=== PATIENT | female | born 1935 | race Caucasian/White ===

== ENCOUNTER → 2018-10-11 | Outpatient (CLI) | payer MEDICARE, OTHER ==
[~2018-10-11] MED LIST: ACET325 PO; ASCO500; ASCO500 PO; ASPI325; ASPI325 PO; ASPI81CH PO; ATOR10 PO; BAYER PLUS 500500 MG PO; CALCAVITD; CALCIUM/VIT D PO; CARV3.125 PO; CHOL10002 PO; CLON.1 PO; CLOP75 PO; CYCL0.05OP; CYCL0.05OP BOTHEYES; Cinnamon500 MG PO; Coq-10100 MG PO; Cosamin Ds Tab1 EACH PO; ESTRADIOL PO; FISH1000 PO; FLAX; FLAX PO; GLUCOSAMINE-CH1 EA10 PO; HYDACE5; HYDCHL25 PO; HYDR1TAB94 PO; ISOMON30 PO; LISI20; Lovastatin20 MG PO; MAGOX 400400 MG PO; METF500; METF500 PO; METO100ER; Multivitamin1 EAC1 PO; ONDA4 PO; OXAP600 PO; PANT40 PO; POTA10T PO; PROBIOTIC1 EAC1 PO; SOLI5 PO; SUMA25; TRAZ50 PO; TRIHYD253B; TROSPIUM CHLORI20 MG PO; TUMERIC CAPSULE PO; UBID100; VITAMIN D PO; XARELTO15 MG PO; ZESTRIL PO
[2018-10-11 12:14] LABS: BASOPHILS ABSOLUTE AUTO 0.06 K/mm3 (0.00-0.23); BASOPHILS PERCENT AUTO 1 % (0-2); EOSINOPHILS PERCENT AUTO 3 % (0-6); Hematocrit 38.3 % (33.0-51.0); Hemoglobin 12.5 g/dL (11.5-16.0); IMMATURE GRAN ABSOLUTE AUTO 0.07 K/mm3 (0.00-0.10); IMMATURE GRAN PERCENT AUTO 1 % (0-1); LYMPHOCYTES ABSOLUTE AUTO 1.16 K/mm3 (0.84-5.20); LYMPHOCYTES PERCENT AUTO 10 % (21-46); MONOCYTES ABSOLUTE AUTO 0.91 K/mm3 (0.16-1.47); MONOCYTES PERCENT AUTO 8 % (4-13); Mean Corpuscular HGB 28.4 pg (26.0-34.0); Mean Corpuscular HGB Conc 32.6 g/dL (31.5-36.5); Mean Corpuscular Volume 87 fL (80-100); Mean Platelet Volume 9.1 fL (9.1-12.4); NEUTROPHILS ABSOLUTE AUTO 9.01 K/mm3 (1.96-9.15); NEUTROPHILS PERCENT AUTO 78 % (41-73); Platelet Count 328 K/mm3 (150-400); RDW Coefficient Variation 14.8 % (11.7-14.2); RDW Standard Deviation 47.3 fL (35.1-46.3); White Blood Cell Count 11.51 K/mm3 (4.00-11.30)
[2018-10-11 12:20] LABS: Bun/Creatinine Ratio 16.4 (12.0-20.0); Creatinine, Blood 1.1 mg/dL (0.40-1.00); Potassium, Blood 3.2 mmol/L (3.5-5.5)
== END | disposition home or self-care (01) ==
LOC: LAB SHORT 12:10 → LAB EV 12:10
PROVIDERS: Physician Assistant Surgical
DX: R41.82 Altered mental status, unspecified (principal)
CPT/HCPCS: 80048; 85025

== ENCOUNTER → 2018-10-16 | Outpatient (CLI) | payer MEDICARE, OTHER | END | disposition home or self-care (01) | LOC: EDSTATUS 08:48 → LAB SHORT 13:50 → LAB 13:50 | DX: R15.9 Full incontinence of feces (principal) | CPT/HCPCS: 87177; 87209 ==

== ENCOUNTER → 2018-10-19 | Outpatient (CLI) | payer MEDICARE, OTHER | END | disposition home or self-care (01) | LOC: LAB 13:42 → LAB SHORT 13:42 | DX: R15.9 Full incontinence of feces (principal) | CPT/HCPCS: 87177; 87209 ==

== ENCOUNTER 2018-10-31 10:21 | Inpatient (IN) | payer MEDICARE, OTHER ==
[~2018-10-31] VITALS: Ht 160 cm; Wt 74.5 kg
[~2018-10-31 10:21] MED LIST changes: -ACET325 PO; -HYDR1TAB94 PO; -ONDA4 PO; -TRAZ50 PO; -TROSPIUM CHLORI20 MG PO; -XARELTO15 MG PO
[2018-10-31 11:14] LABS: BASOPHILS ABSOLUTE AUTO 0.06 K/mm3 (0.00-0.23); BASOPHILS PERCENT AUTO 1 % (0-2); EOSINOPHILS ABSOLUTE AUTO 0.04 K/mm3 (0.00-0.68); EOSINOPHILS PERCENT AUTO 0 % (0-6); Hematocrit 37.7 % (33.0-51.0); Hemoglobin 11.6 g/dL (11.5-16.0); IMMATURE GRAN PERCENT AUTO 1 % (0-1); LYMPHOCYTES ABSOLUTE AUTO 0.82 K/mm3 (0.84-5.20); LYMPHOCYTES PERCENT AUTO 6 % (21-46); MONOCYTES PERCENT AUTO 6 % (4-13); Mean Corpuscular HGB 27.3 pg (26.0-34.0); Mean Corpuscular HGB Conc 30.8 g/dL (31.5-36.5); Mean Corpuscular Volume 89 fL (80-100); Mean Platelet Volume 9.2 fL (9.1-12.4); NEUTROPHILS ABSOLUTE AUTO 11.27 K/mm3 (1.96-9.15); NEUTROPHILS PERCENT AUTO 86 % (41-73); Platelet Count 271 K/mm3 (150-400); RDW Coefficient Variation 16.6 % (11.7-14.2); RDW Standard Deviation 52.9 fL (35.1-46.3); Red Blood Cell Count 4.25 M/mm3 (3.80-5.20); White Blood Cell Count 13.09 K/mm3 (4.00-11.30)
[2018-10-31 11:35] LABS: Troponin I 0.054 ng/mL (0.000-0.040)
[2018-10-31 11:36] LABS: Albumin, Blood 2.2 g/dL (3.4-5.0); Albumin/Globulin Ratio 0.6 (0.8-1.8); Bilirubin, Total 0.5 mg/dL (0.1-1.0); Bun/Creatinine Ratio 14.7 (12.0-20.0); Creatinine, Blood 1.16 mg/dL (0.40-1.00); Globulin, Blood 3.9 g/dL (2.2-4.0); Potassium, Blood 3.8 mmol/L (3.5-5.5); Total Protein, Blood 6.1 g/dL (6.4-8.2)
--- NOTE | 2018-10-31 17:59 | NUR ---
SHE HAS BEEN ADMITTED TO ROOM 302 FROM THE ER. SHE CAN AMBULATE WITH 1 ASSIST. HER IS BACK AT HER BEDSIDE NOW. SHE HAS HAD LOTS OF FAMILY VISIT THIS AFTERNOON. NO SOB AT REST. APPETITE GOOD. SHE SAYS SHE HAS NOT HAD ANY WGT LOSS. SHE DOES HAVE SIGNIFICANT EDEMA THOUGH. SHE IS MILDLY ANXIOUS AND WANTS TO ORDER A SLEEPER TONIGHT.
[2018-10-31 21:38] LABS: Cancer Antigen 19-9 655.6 U/mL (2.0-37.0); Carcinoembryonic Antigen 5.8 ng/mL (0.0-3.0)
[2018-10-31 21:45] LABS: Cancer Antigen 125 106.1 U/mL (1.5-35.0)
[2018-11-01 04:28] LABS: BASOPHILS ABSOLUTE AUTO 0.07 K/mm3 (0.00-0.23); BASOPHILS PERCENT AUTO 1 % (0-2); EOSINOPHILS ABSOLUTE AUTO 0.25 K/mm3 (0.00-0.68); EOSINOPHILS PERCENT AUTO 2 % (0-6); Hematocrit 36.1 % (33.0-51.0); Hemoglobin 11.4 g/dL (11.5-16.0); IMMATURE GRAN ABSOLUTE AUTO 0.08 K/mm3 (0.00-0.10); IMMATURE GRAN PERCENT AUTO 1 % (0-1); LYMPHOCYTES ABSOLUTE AUTO 1.29 K/mm3 (0.84-5.20); LYMPHOCYTES PERCENT AUTO 11 % (21-46); MONOCYTES ABSOLUTE AUTO 0.84 K/mm3 (0.16-1.47); MONOCYTES PERCENT AUTO 7 % (4-13); Mean Corpuscular HGB 27.5 pg (26.0-34.0); Mean Corpuscular HGB Conc 31.6 g/dL (31.5-36.5); Mean Corpuscular Volume 87 fL (80-100); Mean Platelet Volume 9.2 fL (9.1-12.4); NEUTROPHILS PERCENT AUTO 79 % (41-73); Platelet Count 244 K/mm3 (150-400); RDW Coefficient Variation 16.4 % (11.7-14.2); RDW Standard Deviation 51.9 fL (35.1-46.3); Red Blood Cell Count 4.14 M/mm3 (3.80-5.20); White Blood Cell Count 12.03 K/mm3 (4.00-11.30)
[2018-11-01 04:43] LABS: International Normalized Ratio 1.53; Prothrombin Time Results 15.6 Sec (9.7-11.5)
[2018-11-01 04:46] LABS: Bun/Creatinine Ratio 12.9 (12.0-20.0); Calcium, Blood 7.6 mg/dL (8.5-10.1); Creatinine, Blood 1.16 mg/dL (0.40-1.00); Potassium, Blood 4.1 mmol/L (3.5-5.5)
--- NOTE | 2018-11-01 04:50 | NUR ---
SHIFT SUMMARY PT HAS HAD A RESTFUL NIGHT. DR. FOSTER IN TO SEE PT SHORTLY AFTER CHANGE OF SHIFT. MEDICATION ORDERED FOR SLEEP, PER PT REQUEST. PT WAS ABLE TO SLEEP WELL WITH TENAZEPAM. VITALS STABLE. SHE HAS DENIED PAIN. RESP E/U ON RA. VITALS STABLE. WILL CONTINUE TO MONITOR AND REPORT TO ONCOMING RN.
--- NOTE | 2018-11-01 10:50 | NUR ---
ECHOCARDIOGRAM COMPLETED
--- NOTE | 2018-11-01 16:05 | NUR ---
SHIFT SUMMARY- PT DENIES PAIN. DENIES SOB. RESP E/U ON RA. DENIES N/V. NSR AT 62 PER PCU CHECKER DUMP GROUNDS. PT WENT FOR CT OF ABDOMEN/PELVIS THIS AFTERNOON. 2+ EDEMA BLE. SBA TO THE BATHROOM. NO OTHER SIGNIFICANT CHANGES THIS SHIFT.
--- NOTE | 2018-11-01 16:23 | NUR ---
REPORT GIVEN TO HERMINIA. CARE TRANSFERED.
--- NOTE | 2018-11-01 18:51 | NUR ---
SHIFT SUMMARY- RECIEVED REPORT FROM JONAS PINTO, PER REPORT PTIS ALERT AND ORIENTED. HAS AC/HS BLOOD SUGARS, AND ADA DIET. PT HAS MULTIPLE FAMILY IN THE ROOM. PT TRANSFERED FROM 302 TO 312 AFTER FAMIL WENT HOME FOR THE NIGHT. PT SPOUSE IS AT THE BEDSIDE. PT WAS ADMITTED FOR PE HOWEVER NEEDS A LIVER BIOPSY SO XERALTO HAS BEEN DC'D AND DR'S ARE WAITING FOR THE FIVE DAYS AFTER XERALTO DC. PT IS AWARE. PLAN IS TO THE BIOPSY NEXT WEEK PER REPORT. WILL PASS ON IN REPORT TO NIGHT RN, PT HAS HAD NO C/O PAIN OR S&S OF DISTRESS NOTED SINCE ASSUMING CARE OF THE PT.
--- NOTE | 2018-11-02 06:02 | NUR ---
83 year old female with cancer with mets and PE from cancer is pleasant and cooperative. up with 1 min assist and cane to bathroom. using dark poor appetite. fluids encouraged. pt on tele monitor with nsr rate in 60s. had to attempt to get iv access multiple times. finally got saline lock lt upper arm after 4 other attempts.pt has supportive family, she is off xaralto today for possible liver biopsy. pt says she feels weak and fatiqued. snores softly while asleep on room air. PT says oncology DR Jones will consult.
--- NOTE | 2018-11-02 18:48 | NUR ---
PT. LYING IN BED WATCHING TV. SPOUSE AT BEDSIDE . PT. HAS HAD SEVERAL FAMILY MEMBERS IN AND OUT OF THE ROOM ALL DAY. DR. MCLEAN TOLD PT. ABOUT THE POSSIBILITY OF CANCER TO THE LIVER AND KIDNEY WITH METS. ACCORDING TO FAMILY AND PT. THIS IS A NEW DIAGNOSIS OF CANCER, PT HAS NOT HAD CANCER PREVIOUSLY PT. IS A&O BUT APPEARS TO HAVE SHORT TERM MEMORY LOSS. NOTIFIED DR. ELLEN LOVELL OF WHAT PT. ROOM NUMBER IS AND LET HIM KNOW FAMILY WOULD LIKE TO SEE HIM AND DO AN OFFICIAL CONSULT PER DR. MCLEAN'E ORDER.
--- NOTE | 2018-11-03 19:01 | NUR ---
PT. LYING QUIETLY, AND PT. ASKED FOR A NO VISITOR SIGN ON DOOR SO PT. COULD GET SOME REST. PT. HAS HAD NON-STOP COMPANY SINCE SHE CAME IN. HAD A LOW GRADE TENP OF 100.1 EARLIER. TYLENOL WAS GIVEN FOR PAIN AND FEVER. PT. WILL REMAIN IN HOSPITAL UNTIL BIOPSY IS DONE THEN WILL PROBABLY BE DISCHARGED HOME UNTIL THE RESULTS OF THE BIOPSY COME BACK. BLOOD SUGARS AND TELEMETRY DC'D. NO OTHER NOTEABLE CHANGES THIS SHIFT.
--- NOTE | 2018-11-04 05:49 | NUR ---
83 YEAR OLD FEMALE AND WITH RECENT DX OF CANCER WITH UNKNOWN PRIMARY SITE WITH METS AND DVT AND PE SUSPECTED FROM CANCER. ONCOLOGY CONSULT PENDING WITH POSSIBLE LIVER BX. OFF XARALTO ON LOVENOX BID FOR DVT PE. PT DENIES NEED FOR PAIN MED AND DENIES ACUTE DISTRESS. SHE DOES HAVE MILD FORGETFULNESS BUT OTHERWISE ALERT AND ORIENTED AND PLEASANT. SPOUSE AND SON IN AND SUPPORTIVE, AWAITS SECOND SON ARRIVAL FROM OUT OF STATE. UP AMB WITH SBA WITH CANE WITH STEADY GAIT.
--- NOTE | 2018-11-04 14:26 | NUR ---
Patient gave state tested nursing assistant, Ade Roberts, permission to shadow her RN tomorrow, help with her care and access her records for school purposes. All information will be kept confidential.
--- NOTE | 2018-11-04 18:03 | NUR ---
Mrs. Castellanos is a alondra woman who has a life-long park in God that sustains her. She is well-supported by a large family presence, and her slabbing machine operator and rastafarian family are visiting. Kell tells me she trusts God completely. That said, she did state she intends to "do everything recommended to fight." Kell and family are awaiting definative dx and clear POC. Spouse, Rey, at bedside. He appears worried, and responded well to comfort outside of room. Kell and her family will benefit from continued spiritual support. I will continue to provide prayer and presence as schedule permits.
--- NOTE | 2018-11-04 18:19 | NUR ---
PATIENT A/OX4, UP WITH CANE AND SBA TO RESTROOM. TOLERATING REGULAR DIET. TAKES PILLS WHOLE WITH APPLESAUCE. LOVENOX TO TREAT LLE DVT AND PE'S. D/C NOW UNTIL AFTER LIVER BIOPSY TOMMORROW PER DR ARREOLA. NORCO GIVEN X1 THIS SHIFT FOR BACK PAIN. LUNGS WITH WHEEZES, MAINTAINING SATS ON RA. DR. OLVELL CONSULTED TODAY FOR ONCOLOGY/ LOW GRADE TEMP OF 99.9 THIS SHIFT, OTHERWISE VSS. CALM AND COOPERATIVE WITH CARE. NO ACUTE CHANGES THIS SHIFT.
--- NOTE | 2018-11-05 06:07 | NUR ---
SUMMARY: A/OX4, CALLS APPROPRIATELY AND SPECIFIES NEEDS. SHE'S A SBA W/CANE TO TOILET. 2+ BLE EDEMA NOTED, LEGS ELEVATED AND PT ON XARELTO FOR L.LEG DVT. 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 LOVENOX AND BLOOD THINNERS TO BE HELD TODAY UNTIL PROCEDURE. SHE HAS KNOWN PE AND IS OCCASIONALLY SOB/WHEEZY W/EXERTION BUT RECOVERS AT REST. SHE REMAINS ON RA W/SPO2 WNL. NORCO PROVIDED FOR TOLERABLE CONTROL OF BACK PAIN AND PT RECIEVED RESTORIL PRN AT HS PER PT REQUEST FOR SLEEP. NO ACUTE CHANGES. VSS/AFEBRILE. WILL MONITOR AND REPORT TO DAY RN.
--- NOTE | 2018-11-05 19:03 | NUR ---
PT A/OX3, PLEASANT AND COOPERATIVE, THE PT IS UP WITH STAND BY ASSIST, THE WAS NPO AFTER BREAKFAST TODAY FOR A LIVER BIOPSY AT 2PM, THE PT TOLERATED THE PROCEDURE WELL, THE PTS EVENING LOVENOX SHOT WAS HELD PER LIVER BIOPSY PROTOCOL NO ASPIRIN OR BLOOD THINNERS FOR 48 HRS, THE PT WAS MEDICATED FOR PAIN X2 TODAY, MULTIPLE FAMILY IN TO SEE THE PT , CALL LIGHT IN REACH
--- NOTE | 2018-11-06 05:49 | NUR ---
SUMMARY: A/OX4, CALLS APPROPRIATELY AND COOPERATIVE W/CARE. PT HAS KNOWN PE AND L.LEG DVT ON LOVENOX AND XARELTO BUT NEW ORDERS ARE IN PLACE TO HOLD ASA AND ALL BLOOD THINNERS X48 HRS POST LIVER BX HAD ON 11/05/18, RESULTS PENDING. PT REMAINS ON RA W/RESPS E/U AND CLEAR LS T/O W/SPO2 WNL. BLE PITTING EDEMA PERSISTS BUT LEGS ELEVATED ON PILLOWS AND SOME IMPROVEMENT NOTED. SHE'S DENIED PAIN/COMPLAINTS BUT REQUESTED RESTORIL PRN FOR SLEEP D/T ANXIETY R/T NEW DX METASTATIC CA. VSS/AFEBRILE BUT LOW GRADE TEMP OF 99.3 NOTED THIS AM AND SHE WAS BUNDLED IN MANY BLANKETS AND PILLOWS. NO ACUTE CHANGES. WILL MONITOR AND REPORT TO DAY RN.
--- NOTE | 2018-11-06 15:16 | NUR ---
I asked the patient if I could be involed in her care on 11/07/18 and the pt said yes.
--- NOTE | 2018-11-06 18:39 | NUR ---
PT A/OX3, PLEASANT AND COOPERATIVE, THE PT IS A STANDBY ASSIST UP TO THE BATHROOM, THE PT WAS UP INTO THE CHAIR AT THE BEDSIDE FOR MOST OF THE DAY, THE PT AMBULATED IN THE ROOM AT TIMES, CARE MANAGEMENT WAS CALLED THIS AM TO HELP PLACE THE PT IN SHORT TERM CARE PER DR. LOPEZ ORDER, LOVENOX WAS DC'D UNTIL TOMARROW AM PER POST LIVER BIOPSY PROTOCOL, THE PT APPEARS TO BE BREATHING EASILY ON RA, MULTIPLE FAMILY AT THE BEDSIDE AT THIS TIME
--- NOTE | 2018-11-07 04:04 | NUR ---
SHIFT SUMMARY PATIENT HAD NO ACUTE CHANGES OBSERVED THIS SHIFT. FAMILY PRESENT AT SHIFT CHANGE. AXOX 3 AND SBA TO BR. PATIENT DENIES PAIN, SOB, AND N/V. PATIENT IN CHAIR FOR FAMILY VISIT AND TRANSFER BACK INTO BED. PATIENT REQUESTED MEDICATION FOR INSOMNIA AND RECEIVED RESTORIL 15 MG PER EMAR. PATIENT ABLE TO SLEEP. PIV REMAINS INTACT. VSS/AFEBRILE. COOPERATIVE WITH CARE. CALL LIGHT IN REACH. BED IN LOWEST POSITION. WILL CONTINUE TO MONITOR UNTIL DAY SHIFT NURSE ASSUMES CARE.
--- NOTE | 2018-11-07 18:42 | NUR ---
SHIFT SUMMARY: NO ACUTE CHANGES TO REPORT THIS SHIFT. PT A&O; CALM AND COOPERATIVE WITH CARE. NO C/O PAIN THIS SHIFT. HX DVT BLE; EDEMA 2+ LEGS; EDEMA 3+ FEET. PT UP WITH 1-ASSIST. AWAITING BIOPSY RESULTS. WCTM.
--- NOTE | 2018-11-08 03:52 | NUR ---
SHIFT SUMMARY PATIENT HAD NO ACUTE CHANGE OBSERVED THIS SHIFT. AXOX 3 AND ONE ASSIST TO BR. DENIES PAIN, SOB, AND N/V. DR FOSTER CALLED TO RESTART LOVENOX 80 MG BID THIS SHIFT. PRESENT AT SHIFT CHANGE. RESTORIL 15 MG GIVEN FOR INSOMNIA PER EMAR. PIV REMAINS INTACT. COOPERATIVE WITH CARE. CALL LIGHT IN REACH. BED IN LOWEST POSITION. WILL CONTINUE TO MONITOR UNTIL DAY SHIFT NURSE ASSUMES CARE.
--- NOTE | 2018-11-08 18:19 | NUR ---
SHIFT SUMMARY: NO ACUTE CHANGES TO REPORT THIS SHIFT. PT A&O; CALM AND COOEPRATIVE WITH CARE. MEDICATED FOR PAIN PER EMAR; NO C/O NAUSEA. DVT IN BLE; EDEMA 2+ IN LEGS/ 3+ IN FEET; ANTICOAGULANTS RESTARTED AFTER LIVER BIOPSY. WEAK GAIT; 1-ASSIST c FWW TO BATHROOM. EXPECTED D/C HOME c HOME HEALTH ON Sunday. WCTM.
--- NOTE | 2018-11-08 19:03 | NUR ---
Pt and are sitting together in room. Pt is alert, oriented, pleasant. Reviewed code status. She is certain that she has a POLST form signed at home. Advised to please bring in if finds it. She accepts booklet, [employer]. She denies pain at this time. Will follow up.
--- NOTE | 2018-11-09 04:56 | NUR ---
SHIFT SUMMARY: PT IS ALERT AND ORIENTED. PT IS CALM AND COOPERATIVE WITH CARE. PT CALLS APPROPRIATELY. PT IS A ONE PERSON ASSIST FOR TRANSFERS. PT REQUESTED SLEEPING MEDICATION, GAVE PRN RESTORIL. PT DENIES PAIN, NAUSEA, VOMITING, AND SOB. PT SLEPT MUCH OF THE NIGHT WHEN NOT DISTURBED. NO ACUTE CHANGES OR COMPLICATIONS OVERNIGHT. WILL REPORT TO DAY NURSE.
[2018-11-09 05:11] LABS: Hematocrit 36.9 % (33.0-51.0); Hemoglobin 11.2 g/dL (11.5-16.0)
[2018-11-09 05:41] LABS: Bun/Creatinine Ratio 16.9 (12.0-20.0); Calcium, Blood 8.2 mg/dL (8.5-10.1); Creatinine, Blood 1.18 mg/dL (0.40-1.00); Potassium, Blood 5.2 mmol/L (3.5-5.5)
--- NOTE | 2018-11-09 17:09 | NUR ---
THIS PT HAD A FEW VISITORS TODAY, HER AND NIECE WHO WILL BE HELPING AT HOME. THE PT CAN AMBULATE TO THE RESTROOM WITH FWW, GAIT BELT AND 1PA. THE PT'S NIECE WALKED WITH THE PT DOWN THE SALAS USING A FWW AND GAIT BELT, AND THEN HELPED THE PT TO THE CHAIR AND RAISED HER FEET. ATTENDS ARE IN PLACE FOR OCCASSIONAL INCONTINENCE. NO ACUTE CHANGES THIS SHIFT. WILL CONTINUE TO MONITOR.
--- NOTE | 2018-11-10 04:55 | NUR ---
SHIFT SUMMARY: PT IS ALERT AND ORIENTED. PT IS CALM AND COOPERATIVE WITH CARE. PT CALLS APPROPRIATELY. PT IS A ONE PERSON ASSIST. PT REQUESTED SLEEP MED, GIVEN. PT DENIES PAIN, NAUSEA, VOMITING, AND SOB. PT SLEPT MUCH OF THE NIGHT WHEN NOT DISTURBED. NO ACUTE CHANGES OR COMPLICATIONS THIS SHIFT. BED IN LOW POSITION, CALL LIGHT WITHIN REACH. WILL REPORT TO DAY NURSE.
--- NOTE | 2018-11-10 07:46 | NUR ---
ASSUMED CARE OF THE PT AT 07:15 TODAY. I ASSISTED THE PT TO THE RESTROOM. ATTENDS WERE CHANGED. BED WAS STRIPPED FOR A LINEN CHANGE. THE PT IS SITTING IN THE CHAIR AT THE BEDSIDE WITH HER SPOUSE.
--- NOTE | 2018-11-10 07:56 | NUR ---
ASSUMED CARE: PT RESTING IN BED UPON ENTRANCE IN ROOM. STATES SHE NEEDS TO USE RESTROOM. ASSISTED WITH FWW AND GAIT BELT. PROVIDED WITH PULL CORD AND INFORMED TO CALL FOR ASSISTANCE.
--- NOTE | 2018-11-10 12:30 | NUR ---
DR ARREOLA CAME IN TO CHECK IN ON PT AND VARIFIED DC ORDERS DR SMITH PUT IN, DUE TO BEING TOLD THIS PT WOULD BE ASSIGNED TO DR SMITH. DR ARREOLA AGREED TO DC ORDERS AND PROVIDED PT WITH XARELTO SAMPLES.
[2018-11-10] MEDS ORDERED: ACET325 PO (12:41)
[2018-11-10] MEDS ORDERED: HYDR1TAB94 PO (12:42)
[2018-11-10] MEDS ORDERED: ONDA4 PO (12:43)
[2018-11-10] MEDS ORDERED: PANT40 PO (12:44)
[2018-11-10] MEDS ORDERED: XARELTO15 MG PO (12:45)
[2018-11-10] MEDS ORDERED: TRAZ50 PO (12:47)
[2018-11-10] MEDS ORDERED: TROSPIUM CHLORI20 MG PO (12:48)
--- NOTE | 2018-11-10 16:50 | NUR ---
PT DISCHARGE. THE PT WAS DISCHARGED AT 1300. THE FAMILY WAS HERE WITH HER DURING DISCHARGE AND PARTICIPATED IN PATIENT/FAMILY EDUCATION. THE INHALATION THERAPY TEACHER ASSISTED THE PT IN A WHEELCHAIR OUT OF THE HOSPITAL.
== END 2018-11-10 14:28 | disposition home or self-care (01) | DRG 435 ==
LOC: ER 10:21 → MEDS 13:49
PROVIDERS: Emergency Medicine; Hospitalist; ADMIT Family Medicine
PROC: 0FD13ZX Extraction of Right Lobe Liver, Percutaneous Approach, Diagnostic (ICD-10-PCS; principal; 2018-11-06)
DX: C78.7 Secondary malignant neoplasm of liver and intrahepatic bile duct (principal); I26.99 Other pulmonary embolism without acute cor pulmonale; I82.412 Acute embolism and thrombosis of left femoral vein; C25.9 Malignant neoplasm of pancreas, unspecified; Z96.641 Presence of right artificial hip joint; E78.5 Hyperlipidemia, unspecified; N28.89 Other specified disorders of kidney and ureter; I10 Essential (primary) hypertension; E11.9 Type 2 diabetes mellitus without complications; Z79.82 Long term (current) use of aspirin
CPT/HCPCS: 36415; 47000; 71046; 71260; 74177; 77012; 80048; 80053; 82378; 82565; 82947; 83880; 84484; 85014; 85018; 85025; 85610; 86301; 86304; 88307; 88341; 88342; 93005; 93010; 93306; 94761; 97110; 97116; 97161; 97530; 99285-25; J1650; Q9967